=== PATIENT | male | born 1985 ===

== ENCOUNTER 2022-11-23 18:10 | Emergency (ER) | payer OTHER, SELFPAY ==
--- NOTE | ~2022-11-23 | XR_ITS ---
EXAMINATION: XR KNEE, RIGHT CLINICAL INFORMATION: Right acute knee pain COMPARISON: None available. TECHNIQUE: Four views of the right knee. FINDINGS: Osseous alignment is anatomic. Joint spaces are maintained. No acute fracture is seen. Small joint effusion is present. XR/XR knee RT 3V IMPRESSION: Small joint effusion. No acute osseous findings.
[2022-11-23 18:17] VITALS: BP 140/80; PULSE 90; O2SAT 98
[2022-11-23 18:22] VITALS: BP 119/92; PULSE 80; RESP 16; TEMP 36.9; O2SAT 99; BMI 34.0
--- NOTE | 2022-11-23 19:27 | ED.FALL ---
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 This occurred in line of duty. Complains of medial knee pain. The 7/10. Worse with movement. He has difficulty bearing weight on the pain. The pain does not radiate. There is no numbness or tingling. Pain is sharp and aching in nature. Patient denies any additional injuries. Patient reports of feeling like his knee blew up. Related Data Allergies Allergy/AdvReac Type Severity Reaction Status Date / Time No Known Allergies Allergy Unverified 12/23/19 18:23 Review of Systems Review of Systems: CONSTITUTIONAL: Denies weight loss, fever and chills. HEENT: Denies changes in vision and hearing. RESPIRATORY: Denies SOB and cough. CV: Denies palpitations no CP. GI: Denies abdominal pain, nausea, vomiting and diarrhea. : Denies dysuria and urinary frequency. MSK: + myalgia and joint pain. SKIN: Denies rash and pruritus. NEUROLOGICAL: Denies headache and syncope. PSYCHIATRIC: Denies recent changes in mood. Denies anxiety and depression. All other ROS are negative unless in HPI PMFSH Social History Social History Advance Directives: No Advance Directives Information Provided: No Physical Exam Vital Signs: Vital Signs: Last Vital Signs Temp 98.4 F 11/23/22 18:22 Pulse 80 11/23/22 18:22 Resp 16 11/23/22 18:22 BP 119/92 H 11/23/22 18:22 Pulse Ox 99 11/23/22 18:22 O2 Del Method Room Air 11/23/22 18:22 BMI result Body Mass Index 34.0 GEN: Well developed, no acute distress, alert, oriented HEENT: Normocephalic, atraumatic, normal external ears, nose appears normal Eyes: Normal to appearance Neck: Supple, no lymphadenopathy Respiratory: Talks in complete sentences, no respiratory distress Extremities: No clubbing cyanosis or edema, no joint effusion, tenderness in the medial aspect of the joint, no laxity, negative anterior and posterior drawer sign Neurologic: No focal neurologic deficits, cranial nerves 2-12 intact, gait normal Skin: No rash Course Course Course Narrative: The workup is complete. X-ray shows no fracture. Suspect knee sprain or strain. Possible medial collateral ligament and medial meniscal injury. Patient is requesting a knee immobilizer and will also provide patient with crutches. Will refer to Occupational Health and orthopedics. Medical Decision Making Medical Decision Making MDM Narrative: Patient presents with acute traumatic right knee pain. Differential diagnosis includes fracture, sprain, strain, internal knee injury, medial meniscus and medial collateral ligament injury. Plan will be to obtain an x-ray, provide patient with analgesia, re-evaluate. Differential Diagnosis Differential Diagnoses: The differential diagnosis associated with the presentation includes (See above) Independent Interpretation I performed an independent interpretation of an: Plain X-Ray (right knee - no fx) Prescription Management I considered prescription management with: Pain Medication Discharge Plan Discharge Clinical Impression: Sprain of knee Patient Disposition: Home, Self-Care Instructions: Crutch Instructions (ED), Knee Sprain (DC), R.I.C.E. Treatment (ED) Referrals: [facility] [Provider Group] - 3 days Robin Cortez MD [Physician] - 3 days
[2022-11-23] MEDS: Ibuprofen 800 MG TABLET PO (20:23)
[2022-11-23] MEDS: Acetaminophen 325 MG TABLET 975 MG PO (20:24)
== END 2022-11-23 20:45 | disposition home or self-care (01) ==
PROVIDERS: Emergency Provider Emergency Medicine
DX: S83.91XA Sprain of unspecified site of right knee, initial encounter (principal); Y35.891A Legal intervention involving other specified means, law enforcement official injured, initial encounter; Y93.02 Activity, running; Y92.414 Local residential or business street as the place of occurrence of the external cause; Y99.0 Civilian activity done for income or pay
CPT/HCPCS: 73562; 99283; 99284

== ENCOUNTER → 2022-11-25 10:42 | Outpatient (BNVA) | payer OTHER, SELFPAY | PROVIDERS: Visit Provider Internal Medicine | DX: M23.91 Unspecified internal derangement of right knee (principal); S62.666B Nondisplaced fracture of distal phalanx of right little finger, initial encounter for open fracture; X58.XXXA Exposure to other specified factors, initial encounter | CPT/HCPCS: 99203 ==

== ENCOUNTER → 2022-11-29 10:12 | Outpatient (BNVA) | payer OTHER, SELFPAY | PROVIDERS: Visit Provider Internal Medicine | DX: S62.666B Nondisplaced fracture of distal phalanx of right little finger, initial encounter for open fracture (principal); X58.XXXA Exposure to other specified factors, initial encounter | CPT/HCPCS: 99213 ==